=== PATIENT | female | born 1980 | race Caucasian/White ===

== ENCOUNTER 2016-08-12 16:08 | Emergency (ER) | payer OTHER ==
[~2016-08-12] VITALS: Ht 170.2 cm; Wt 104.5 kg
[~2016-08-12 16:08] MED LIST: CEPHALEXIN500 MG PO; NAPROSYN500 MG PO; ULTRAM50 M1 PO
[2016-08-12] MEDS ORDERED: LEVOTHYROXIN100 MCG PO (16:17)
[2016-08-12] MEDS ORDERED: KETOROLAC10 MG PO (17:37)
[2016-08-12] MEDS ORDERED: FLEXERIL PO (19:01)
[2016-08-12 19:50] VITALS: BP 144/74
== END 2016-08-12 19:50 | disposition home or self-care (01) | DRG 552 ==
LOC: ED 16:08
DX: M54.17 Radiculopathy, lumbosacral region (principal)